=== PATIENT | male | born 1940 | race Caucasian/White ===

== ENCOUNTER → 2016-11-17 | Outpatient (CLI) | payer OTHER ==
[~2016-11-17] MED LIST: ALBU1AER9 INH; ASPI81TA28 PO; BIMA0.01 OPB; BRIM0.2S18 OPB; CALCTAB7 PO; DORZ2SOL17 OPB; GADAVIST IV PRN; IPRA1AER2 INH; MULT-190 PO; MULTCHW PO; TPRSR25 PO
--- NOTE | 2016-11-17 11:44 | DIAGNOSTIC IMAGING REPORT ---
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 COMPARISON STUDY: None. FINDINGS: There is no mass, hematoma, midline shift, or acute infarct. The paranasal sinuses are clear. The ventricles and sulci demonstrate mild age-related involutional changes. Multiple foci of T2 hyperintensity seen within the periventricular and subcortical white matter are nonspecific but suggestive of advanced microvascular ischemic changes. The major vascular flow voids at the skull base are well-maintained. A few opacified left mastoid air cells. The pituitary gland enhances normally. No suprasellar masses. The pituitary stalk and optic chiasm are within normal limits. IMPRESSION: 1. No acute intracranial abnormality. 2. Normal pituitary gland. 3. Extensive T2 hyperintensity within the white matter. This is nonspecific but favors advanced microvascular ischemic change. Electronically signed by: Travis Gresham M.D. 11/17/2016 11:43 AM Dictated Date/Time: 11/17/2016 11:36 AM
== END | disposition home or self-care (01) ==
LOC: C.MRIBC 09:41
PROVIDERS: ATTEND Specialist
DX: H40.1132 Primary open-angle glaucoma, bilateral, moderate stage (principal)

== ENCOUNTER → 2017-07-12 | Outpatient (CLI) | payer OTHER ==
[~2017-07-12] MED LIST changes: -GADAVIST IV PRN
== END | disposition home or self-care (01) ==
LOC: C.PATHSPEC 16:38
PROVIDERS: ATTEND Physician Assistant
DX: L98.9 Disorder of the skin and subcutaneous tissue, unspecified (principal)